=== PATIENT | female | born 1945 | race Caucasian/White ===

== ENCOUNTER 2019-01-02 08:00 | Inpatient (IN) | payer OTHER ==
[~2019-01-02] VITALS: Ht 149.9 cm; Wt 54.9 kg
[2019-01-02] MEDS ORDERED: PRED10TA23 PO (08:11)
[2019-01-02] MEDS ORDERED: HYDR200T80 PO (08:11)
[2019-01-02] MEDS ORDERED: MORPHINE SULFATE 4 MG/ML CPJ (NOT FOR IM USE) IV STA (08:22)
[2019-01-02] MEDS ORDERED: SODIUM CHLORIDE 0.9% 1,000 ML IV ONE (08:22)
[2019-01-02 09:21] LABS: BASOPHILS % 1.1 % (0.0-2.0); EOSINOPHILS % 1.6 % (0.0-5.0); HEMATOCRIT. 40.4 % (36.0-48.0); HEMOGLOBIN. 13.3 g/dL (12.0-16.0); LYMPHOCYTES % 43.7 % (20.0-50.0); MEAN CORPUSCULAR HEMOGLOBIN 31.9 pg (28.0-32.0); MEAN CORPUSCULAR VOLUME 97.2 fL (81.0-99.0); MEAN PLATELET VOLUME 10.4 fl (7.4-10.4); MONOCYTES % 10.2 % (2.0-8.0); NEUTROPHILS % 43.4 % (40.0-76.0); PLATELET 242 x1000/uL (130-400); RED BLOOD CELL COUNT 4.16 mill/uL (4.2-5.4); RED CELL DISTRIBUTION WIDTH 14.3 % (11.6-14.6)
[2019-01-02 09:26] LABS: PROTHROMBIN TIME 10.2 sec (9.1-11.1)
[2019-01-02] MEDS ORDERED: ONDANSETRON HCL 4MG/2ML INJ IV ONE (09:30)
[2019-01-02] MEDS ORDERED: ONDANSETRON HCL 4MG/2ML INJ ONE (09:32)
[2019-01-02 09:33] LABS: CLARITY URINE CLEAR (CLEAR); COLOR URINE YELLOW (YELLOW); KETONES URINE NEGATIVE (NEGATIVE); LEUKOCYTE ESTERASE URINE NEGATIVE (NEGATIVE); NITRITE URINE NEGATIVE (NEGATIVE); OCCULT BLOOD URINE 1+ (NEGATIVE); PH URINE 6.5 (4.5-8.0); PROTEIN URINE NEGATIVE (NEGATIVE); SPECIFIC GRAVITY URINE 1.011 (1.005-1.030); UROBILINOGEN URINE 0.2 E.U./dL (0.2-1.0)
[2019-01-02 10:01] LABS: CHLORIDE 106 mEq/L (98-107)
[2019-01-02] MEDS ORDERED: ASPIRIN 81MG TABLET PO ONE (10:30)
[2019-01-02 10:59] LABS: ETHANOL BLOOD < 10 mg/dL
[2019-01-02 11:50] LABS: *AMPHETAMINES SCREEN URINE NEGATIVE (NEGATIVE); *BARBITURATES SCREEN URINE NEGATIVE (NEGATIVE)
[2019-01-02 11:51] LABS: *BENZODIAZEPINES SCREEN URINE NEGATIVE (NEGATIVE); *COCAINE SCREEN URINE NEGATIVE (NEGATIVE); CANNABINOID URINE SCREEN PRESUMTIVE POSITIVE (NEGATIVE); OPIATES URINE SCREEN NEGATIVE (NEGATIVE)
[2019-01-02 11:52] LABS: PHENCYCLIDINE URINE SCREEN NEGATIVE (NEGATIVE)
[2019-01-02 11:53] LABS: METHADONE URINE SCREEN NEGATIVE (NEGATIVE)
[2019-01-02 16:00] VITALS: BP 111/57
[2019-01-02] MEDS ORDERED: ONDANSETRON HCL 4MG/2ML INJ IV PRN (16:00)
[2019-01-02] MEDS ORDERED: ACETAMINOPHEN 325MG TABLET PO PRN (16:00)
[2019-01-02] MEDS ORDERED: HYDROCODONE/ACETAMINOPHEN 5/325MG TABLET PO PRN (16:00)
[2019-01-02] MEDS ORDERED: IPRATROPIUM/ALBUTEROL 0.5-3(2.5)MG/3ML NEB INH PRN (16:00)
[2019-01-02 18:47] VITALS: BP 151/52
[2019-01-02] MEDS ORDERED: LISI2.5T47 MT (18:56)
[2019-01-02] MEDS: HYDROXYCHLOROQUINE SULFATE 200MG TABLET PO SCH (19:07)
[2019-01-02] MEDS: ENOXAPARIN 40MG/0.4ML SYR SUBCUT SCH (19:09)
[2019-01-02 20:00] VITALS: BP 179/77
[2019-01-02] MEDS: SODIUM CHLORIDE 0.45% 1,000 ML IV SCH (20:31)
[2019-01-02] MEDS: CLONIDINE 0.1MG TABLET PO PRN (20:44)
[2019-01-03] VITALS: BP 109/43
[2019-01-03 04:00] VITALS: BP 142/61
[2019-01-03 06:10] LABS: BASOPHILS % 0.6 % (0.0-2.0); EOSINOPHILS % 3.1 % (0.0-5.0); HEMOGLOBIN. 11.4 g/dL (12.0-16.0); LYMPHOCYTES % 42.1 % (20.0-50.0); MEAN CORPUSCULAR HEMOGLOBIN 32.7 pg (28.0-32.0); MEAN CORPUSCULAR VOLUME 97.2 fL (81.0-99.0); MEAN PLATELET VOLUME 10.4 fl (7.4-10.4); MONOCYTES % 7.9 % (2.0-8.0); NEUTROPHILS % 46.3 % (40.0-76.0); PLATELET 183 x1000/uL (130-400); RED CELL DISTRIBUTION WIDTH 14.6 % (11.6-14.6)
[2019-01-03 06:23] LABS: CHLORIDE 106 mEq/L (98-107)
[2019-01-03 06:47] LABS: CREATINE KINASE 66 IU/L (26-192); LDL CHOLESTEROL 110 mg/dL (5-100)
[2019-01-03 06:48] LABS: HDL CHOLESTEROL 52 mg/dL (40-59); T4 FREE 1.33 ng/dL (0.76-1.46)
[2019-01-03 08:00] VITALS: BP 143/92
[2019-01-03] MEDS: CLONIDINE 0.1MG TABLET PO PRN (09:36)
[2019-01-03] MEDS: HYDROXYCHLOROQUINE SULFATE 200MG TABLET PO SCH (09:36)
[2019-01-03] MEDS: SODIUM CHLORIDE 0.45% 1,000 ML IV SCH (09:36)
[2019-01-03 12:00] VITALS: BP 136/64
[2019-01-03 16:00] VITALS: BP 133/82
[2019-01-03] MEDS: ENOXAPARIN 40MG/0.4ML SYR SUBCUT SCH (17:15)
[2019-01-03 20:00] VITALS: BP 141/63
[2019-01-04] VITALS: BP 149/63
[2019-01-04] MEDS: SODIUM CHLORIDE 0.45% 1,000 ML IV SCH (03:20)
[2019-01-04 04:00] VITALS: BP 155/93
[2019-01-04 08:00] VITALS: BP 161/64
[2019-01-04] MEDS: HYDROXYCHLOROQUINE SULFATE 200MG TABLET PO SCH (09:39)
[2019-01-04] MEDS: CLONIDINE 0.1MG TABLET PO PRN (09:40)
[2019-01-04 12:00] VITALS: BP 138/63
[2019-01-04 15:43] VITALS: BP 138/63
[2019-01-04 16:00] VITALS: BP 141/76
[2019-01-04] MEDS: ENOXAPARIN 40MG/0.4ML SYR SUBCUT SCH (18:04)
== END 2019-01-04 20:00 | disposition home or self-care (01) | DRG 391 ==
LOC: ER 08:57 → 6EST 11:38 → ENRESERV 15:29
PROVIDERS: ADMIT Internal Medicine; ATTEND Internal Medicine
DX: K29.70 Gastritis, unspecified, without bleeding (principal); I50.43 Acute on chronic combined systolic (congestive) and diastolic (congestive) heart failure; I13.0 Hypertensive heart and chronic kidney disease with heart failure and stage 1 through stage 4 chronic kidney disease, or unspecified chronic kidney disease; N18.9 Chronic kidney disease, unspecified; D64.9 Anemia, unspecified; Z79.899 Other long term (current) drug therapy
CPT/HCPCS: 36415; 71045; 74176; 80061; 80305; 80307; 80329; 82550; 83605; 83880; 84439; 84443; 84484; 93005; 93306; 96361; 96374; 96375; 97116; 97162; 97530; 99285; J1650; J2270; J2405; J7030

== ENCOUNTER 2019-01-05 11:43 | Emergency (ER) | payer OTHER ==
[~2019-01-05] VITALS: Ht 149.9 cm; Wt 58.0 kg
[~2019-01-05 11:43] MED LIST: HYDR200T80 PO; LISI2.5T47 MT; PRED10TA23 PO
[2019-01-05] MEDS ORDERED: KETOROLAC 30MG/ML VIAL IV STA (16:45)
[2019-01-05] MEDS ORDERED: SODIUM CHLORIDE 0.9% 1,000 ML IV ONE (16:45)
[2019-01-05] MEDS ORDERED: ONDANSETRON HCL 4MG/2ML INJ IV STA (16:45)
[2019-01-05 17:28] LABS: BASOPHILS % 0.8 % (0.0-2.0); EOSINOPHILS % 0.8 % (0.0-5.0); HEMATOCRIT. 37.7 % (36.0-48.0); HEMOGLOBIN. 12.2 g/dL (12.0-16.0); LYMPHOCYTES % 33.8 % (20.0-50.0); MEAN CORPUSCULAR HEMOGLOBIN 31.6 pg (28.0-32.0); MEAN CORPUSCULAR VOLUME 97.4 fL (81.0-99.0); MEAN PLATELET VOLUME 10.5 fl (7.4-10.4); NEUTROPHILS % 53.6 % (40.0-76.0); PLATELET 222 x1000/uL (130-400); RED BLOOD CELL COUNT 3.87 mill/uL (4.2-5.4); RED CELL DISTRIBUTION WIDTH 14.5 % (11.6-14.6)
[2019-01-05 17:32] LABS: CHLORIDE 104 mEq/L (98-107)
[2019-01-05 17:33] LABS: PROTHROMBIN TIME 10.4 sec (9.1-11.1)
[2019-01-05 20:36] LABS: CLARITY URINE CLEAR (CLEAR); COLOR URINE YELLOW (YELLOW); KETONES URINE 1+ (NEGATIVE); LEUKOCYTE ESTERASE URINE 1+ (NEGATIVE); NITRITE URINE NEGATIVE (NEGATIVE); OCCULT BLOOD URINE 1+ (NEGATIVE); PROTEIN URINE NEGATIVE (NEGATIVE); SPECIFIC GRAVITY URINE 1.013 (1.005-1.030); UROBILINOGEN URINE 0.2 E.U./dL (0.2-1.0)
[2019-01-05] MEDS ORDERED: CLONIDINE 0.2MG TABLET PO ONE (21:15)
[2019-01-05] MEDS ORDERED: CEFTRIAXONE 1 G PREMIX 50 ML IV ONE (22:30)
[2019-01-06 00:18] VITALS: BP 97/43
== END 2019-01-06 00:23 | disposition home or self-care (01) ==
LOC: ER 12:58 → EDBEDREQTM 21:24 → EDBEDREQ 21:24 → ENRESERV 22:04 → CANRESERV 22:04 → ER 01-06 00:23 → CANBEDREQ 01-06 08:22
DX: M46.96 Unspecified inflammatory spondylopathy, lumbar region (principal); M62.81 Muscle weakness (generalized); M32.9 Systemic lupus erythematosus, unspecified; N39.0 Urinary tract infection, site not specified; I10 Essential (primary) hypertension; R10.9 Unspecified abdominal pain
CPT/HCPCS: 36415; 72131; 74021; 80053; 81003; 83690; 85025; 85610; 96365; 96375; 99284; J0696; J1885; J2405; J7030

== ENCOUNTER 2019-05-09 12:52 | Emergency (ER) | payer OTHER ==
[~2019-05-09] VITALS: Ht 160 cm; Wt 48.0 kg
[2019-05-09] MEDS ORDERED: IBUPROFEN 400MG TABLET PO ONE (13:30)
[2019-05-09] MEDS ORDERED: TRAMADOL 50MG TABLET PO ONE (13:30)
[2019-05-09 13:46] LABS: BASOPHILS % 0.7 % (0.0-2.0); EOSINOPHILS % 0.2 % (0.0-5.0); HEMATOCRIT. 32.1 % (36.0-48.0); HEMOGLOBIN. 10.8 g/dL (12.0-16.0); LYMPHOCYTES % 23.4 % (20.0-50.0); MEAN CORPUSCULAR HEMOGLOBIN 32.2 pg (28.0-32.0); MEAN CORPUSCULAR VOLUME 95.7 fL (81.0-99.0); MEAN PLATELET VOLUME 9.9 fl (7.4-10.4); NEUTROPHILS % 66.7 % (40.0-76.0); PLATELET 201 x1000/uL (130-400); RED BLOOD CELL COUNT 3.35 mill/uL (4.2-5.4); RED CELL DISTRIBUTION WIDTH 13.7 % (11.6-14.6)
[2019-05-09 13:50] LABS: CHLORIDE 104 mEq/L (98-107)
[2019-05-09] MEDS ORDERED: ALPRAZOLAM 0.5 MG TABLET PO ONE (16:15)
[2019-05-09] MEDS ORDERED: OLANZAPINE 10MG TABLET PO SCH (18:15)
[2019-05-09] MEDS ORDERED: RISP0.5T19 MT (18:22)
[2019-05-09] MEDS ORDERED: SERT50TA MT (18:22)
[2019-05-10] MEDS ORDERED: ACETAMINOPHEN 325MG TABLET PO ONE (08:30)
[2019-05-10 14:05] LABS: CLARITY URINE CLEAR (CLEAR); COLOR URINE YELLOW (YELLOW); KETONES URINE NEGATIVE (NEGATIVE); LEUKOCYTE ESTERASE URINE TRACE (NEGATIVE); NITRITE URINE NEGATIVE (NEGATIVE); OCCULT BLOOD URINE NEGATIVE (NEGATIVE); PH URINE 5.5 (4.5-8.0); PROTEIN URINE NEGATIVE (NEGATIVE); SPECIFIC GRAVITY URINE 1.009 (1.005-1.030); UROBILINOGEN URINE 0.2 E.U./dL (0.2-1.0)
[2019-05-10] MEDS ORDERED: TRAMADOL 50MG TABLET PO ONE (22:15)
[2019-05-11] MEDS ORDERED: ALPRAZOLAM 0.5 MG TABLET PO ONE (00:45)
[2019-05-11] MEDS ORDERED: OLANZAPINE 10 MG/VIAL IM ONE (00:45)
[2019-05-11] MEDS ORDERED: ACETAMINOPHEN 325MG TABLET PO ONE (09:00)
[2019-05-11] MEDS ORDERED: LISINOPRIL 40MG TABLET PO ONE (09:45)
[2019-05-11 10:01] VITALS: BP 187/83
== END 2019-05-11 10:23 | disposition home or self-care (01) ==
LOC: ER 12:52
DX: R41.9 Unspecified symptoms and signs involving cognitive functions and awareness (principal); F23 Brief psychotic disorder; F32.9 Major depressive disorder, single episode, unspecified; M32.9 Systemic lupus erythematosus, unspecified
CPT/HCPCS: 36415; 71045; 80053; 85025; 99284; J3490